=== PATIENT | male | born 1950 | race Caucasian/White ===

== ENCOUNTER 2020-12-27 17:15 | Emergency (ER) | payer MEDICARE, OTHER ==
[2020-12-27] MEDS ORDERED: Diphtheria,Pertussis(Acell),Tetanus Vaccine 0.5 ML Syringe IM ONE (17:34)
--- NOTE | 2020-12-27 17:41 | EDM.PDOC ---
ED HPI GENERAL MEDICAL PROBLEM - General Chief Complaint: Laceration Stated Complaint: LEFT CHIN LACERATION Time Seen by Provider: 12/27/20 17:30 Source of Information: Reports: Patient History Limitations: Reports: No Limitations - History of Present Illness INITIAL COMMENTS - FREE TEXT/NARRATIVE: 70 year-old male presents to the emergency room with a chainsaw laceration over his left myers. Patient states that he was cutting down lilac bushes in the saw kicked back striking his lower leg. He reports the wound is very superficial and only mild bleeding. No other complaints are voiced. He was able to drive himself in to the emergency room. He has no numbness or tingling complaints in the leg. Was wearing thick and heavy jeans when using the chainsaw. Onset: Today Onset Date: 12/27/20 Onset Time: 16:00 Duration: Minutes: Location: Reports: Lower Extremity, Left Quality: Reports: Ache Severity: Mild Improves with: Reports: None Worsens with: Reports: None Context: Reports: Trauma Associated Symptoms: Reports: No Other Symptoms ED ROS GENERAL - Review of Systems Review Of Systems: Comprehensive ROS is negative, except as noted in HPI. ED EXAM, SKIN/RASH Exam: See Below Exam Limited By: No Limitations General Appearance: Alert, WD/WN, No Apparent Distress Throat/Mouth: Normal Voice, No Airway Compromise Head: Atraumatic Neck: Normal Inspection Respiratory/Chest: No Respiratory Distress Extremities: Normal Inspection, Other (Superficial laceration over the left myers. Dog ear type laceration with irregular borders. No muscle, tendon, bone exposure) Neurological: Alert, Oriented, No Motor/Sensory Deficits Psychiatric: Normal Affect, Normal Mood Skin: Wound/Incision (Left myers, superficial laceration with irregular borders and dog ear type.) Course - Orders/Labs/Meds Orders: Active Orders 24 hr Category Date Time Status Vaccines to be Administered [RC] PER UNIT ROUTINE Care 12/27/20 17:35 Active Meds: Medications Discontinued Medications Generic Name Dose Route Start Last Admin Trade Name Freq PRN Reason Stop Dose Admin Diphtheria/Tetanus/Acell Pertussis 0.5 ml 12/27/20 17:34 Diphtheria,Pertussis(Acell),Tetanus Vaccine 0.5 Ml Syringe IM 12/27/20 17:35 .ONCE ONE - Re-Assessments/Exams Free Text/Narrative Re-Assessment/Exam: 12/27/20 17:40 The wound was inspected. It was cleaned with peroxide. Wound was superficial. About 2-1/2 cm with irregular border and dog ear type laceration. Triple antibiotic, nonadhesive Telfa and Coban was placed over the wound. No sutures were needed. Was instructed on daily dressing changes and observation. Departure - Departure Time of Disposition: 17:41 Disposition: Home, Self-Care 01 Condition: Good Clinical Impression: Laceration of left lower extremity Qualifiers: Encounter type: initial encounter Qualified Code(s): S81.812A - Laceration without foreign body, left lower leg, initial encounter - Discharge Information Instructions: Skin Tear, [id number], Nonsutured Laceration Care Referrals: PCP,None [Primary Care Provider] - Forms: ED Department Discharge Additional Instructions: 1. Dressing daily change. Clean wound with peroxide. Apply triple antibiotic and cover with nonadhesive Telfa and Coban. Keep the wound clean and dry. 2. If wound becomes red, drainage, purulence, you will need to be seen by your primary care for possible infection. 3. Tetanus was updated today. - My Orders Last 24 Hours: My Active Orders 12/27/20 17:35 Vaccines to be Administered [RC] PER UNIT ROUTINE - Assessment/Plan Last 24 Hours: My Active Orders 12/27/20 17:35 Vaccines to be Administered [RC] PER UNIT ROUTINE Assessment:: Left lower leg superficial laceration Plan: 1. Dressing daily change. Clean wound with peroxide. Apply triple antibiotic and cover with nonadhesive Telfa and Coban. Keep the wound clean and dry. 2. If wound becomes red, drainage, purulence, you will need to be seen by your primary care for possible infection. 3. Tetanus was updated today.
== END 2020-12-27 17:44 | disposition home or self-care (01) ==
LOC: KA.ED 17:15
DX: S81.812A Laceration without foreign body, left lower leg, initial encounter (principal); Z23 Encounter for immunization; W27.0XXA Contact with workbench tool, initial encounter
CPT/HCPCS: 90471; 90715; 99282; 99283

== ENCOUNTER 2021-03-06 16:21 | Emergency (ER) | payer MEDICARE, OTHER ==
[2021-03-06] MEDS ORDERED: Aspirin 81 MG Tab.Chew ONE (16:34)
[2021-03-06] MEDS ORDERED: Aspirin 81 MG Tab.Chew PO ONE (16:35)
--- NOTE | 2021-03-06 17:20 | EDM.PDOC ---
ED HPI GENERAL MEDICAL PROBLEM - General Chief Complaint: Chest Pain Stated Complaint: CHEST PAIN Time Seen by Provider: 03/06/21 16:45 Source of Information: Reports: Patient History Limitations: Reports: No Limitations - History of Present Illness INITIAL COMMENTS - FREE TEXT/NARRATIVE: 70-year-old male presents emergency room reports over the last 48 hours he has had 3 separate episodes of he describes chest discomfort across his chest and radiating down both of his arms with tingling in his arms. First episode occurred 2 nights ago while laying in bed. The symptoms resolved within 30 to 45 minutes each of the last 2 times. He felt a little clammy last night and the night before. He did not take anything for this. He denied any weakness in his arms. He denied any nausea or vomiting. He denied any significant jaw pain abdominal pain or back pain. Each time the symptoms are rated across the shoulders going down the arms. He stated that he had this symptom occur once again this afternoon at about 330 this afternoon. He thought he should get this checked out. The symptoms have resolved prior to his arrival. He does not have a primary care. He is not on any medications for high blood pressure cholesterol. Family history is significant for his father had congestive heart failure and hypertension. His father is in his 80s. He denied any chest pain or dyspnea on exertion. He denies any swelling in his legs. He also mentions today that he has had a toothache now going on for several weeks and feels that he may have a infection in 1 if his lower left jaw molars. States that he needs to get into the dentist. He is inquiring about a possible antibiotic for his tooth ache. Onset: Today, Other Onset Date: 03/04/21 Onset Time: 14:30 Duration: Minutes: (30-45), Recurring, Resolved Prior to Arrival Location: Reports: Chest, Upper Extremity, Left, Upper Extremity, Right Quality: Reports: Ache Severity: Mild Improves with: Reports: None Worsens with: Reports: None Associated Symptoms: Reports: Chest Pain, Diaphoresis. Denies: Headaches, Nausea/Vomiting, Shortness of Breath, Syncope 0 Pain Score (Numeric/FACES): 0 - Related Data Allergies Allergy/AdvReac Type Severity Reaction Status Date / Time No Known Drug Allergies Allergy Cannot Verified 03/06/21 16:39 Remember Home Meds: Home Meds . [No Known Home Meds] 12/27/20 [History] Past Medical History - Past Health History Medical/Surgical History: Denies Medical/Surgical History HEENT History: Reports: Allergic Rhinitis - Infectious Disease History Infectious Disease History: Reports: None Social & Family History - Tobacco Use Tobacco Use Status *Q: Never Tobacco User - Caffeine Use Caffeine Use: Reports: Coffee - Alcohol Use Days Per Week of Alcohol Use: 1 Number of Drinks Per Day: 1 Total Drinks Per Week: 1 - Recreational Drug Use Recreational Drug Use: No ED ROS GENERAL - Review of Systems Review Of Systems: See Below Constitutional: Reports: No Symptoms HEENT: Reports: Glasses Respiratory: Reports: No Symptoms Cardiovascular: Reports: Chest Pain, Palpitations (skips abeat). Denies: Dyspnea on Exertion, Lightheadedness, Orthopnea Endocrine: Reports: No Symptoms GI/Abdominal: Denies: Abdominal Pain, Nausea, Vomiting : Reports: No Symptoms Musculoskeletal: Reports: Shoulder Pain (bilateralshoulder and down arms) Skin: Reports: No Symptoms Neurological: Reports: No Symptoms Psychiatric: Reports: No Symptoms Hematologic/Lymphatic: Reports: No Symptoms Immunologic: Reports: No Symptoms ED EXAM, GENERAL - Physical Exam Exam: See Below Exam Limited By: No Limitations General Appearance: Alert, WD/WN, No Apparent Distress Eye Exam: Bilateral Eye: EOMI Ears: Hearing Grossly Normal Nose: Normal Inspection Throat/Mouth: Normal Inspection, Normal Oropharynx, Normal Voice, Other (prior tooth filling with c/o dental pain worsing over weeks. left bottom jaw) Head: Atraumatic Neck: Normal Inspection, Supple, Non-Tender, Full Range of Motion. No: Carotid Bruit, Lymphadenopathy (L), Lymphadenopathy (R) Respiratory/Chest: No Respiratory Distress, Lungs Clear, Normal Breath Sounds, No Accessory Muscle Use, Chest Non-Tender Cardiovascular: Normal Peripheral Pulses, Regular Rate, Rhythm, No Murmur Peripheral Pulses: 2+: Carotid (L), Carotid (R), Radial (L), Radial (R) GI/Abdominal: Normal Bowel Sounds, Soft, Non-Tender, No Abnormal Bruit Back Exam: Normal Inspection, Full Range of Motion Extremities: Normal Inspection, Normal Range of Motion, Non-Tender, No Pedal Edema, Normal Capillary Refill Neurological: Alert, Oriented, CN II-XII Intact, Normal Cognition, Normal Gait, Normal Reflexes, No Motor/Sensory Deficits Psychiatric: Normal Affect, Normal Mood Skin Exam: Warm, Dry, Intact, Normal Color, No Rash. No: Diaphoretic Lymphatic: No Adenopathy #1 Interpretation EKG Date: 03/06/21 Rhythm: Other (Normal sinus rhythm with sinus arrhythmia0) [place]: RAD-Right [place] Deviation P-Wave: Present QRS: Normal ST-T: Other (nonspecific ST and T wave abnormality) QT: Normal Comparison: NA - No Prior EKG EKG Interpretation Comments: Normal sinus rhythm with sinus arrhythmia Right axis deviation Nonspecific ST and T wave abnormality Abnormal ECG Course - Vital Signs Last Recorded V/S: Last Vital Signs Temp 97.9 F 03/06/21 16:31 Pulse 61 03/06/21 18:00 Resp 20 03/06/21 18:00 BP 128/71 03/06/21 18:00 Pulse Ox 95 03/06/21 18:00 - Orders/Labs/Meds Orders: Active Orders 24 hr Category Date Time Status EKG Documentation Completion [RC] ASDIRECTED Care 03/06/21 16:37 Active EKG 12 Lead [EK] Stat Ther 03/06/21 16:37 Ordered Labs: Laboratory Tests 03/06/21 03/06/21 Range/Units 17:00 17:00 WBC 6.79 (5.00-10.00) 10^3/uL RBC 5.49 (4.50-6.00) 10^6/uL Hgb 15.4 (13.0-17.0) g/dL Hct 46.8 (40.0-52.0) % MCV 85.2 (82.0-92.0) fL MCH 28.1 (27.0-31.0) pg MCHC 32.9 (32.0-36.0) g/dL RDW 13.2 (11.5-14.5) % Plt Count 178 (150-400) 10^3/uL MPV 10.2 (7.4-10.4) fL Immature Gran % (Auto) 0.1 (0.0-5.0) % Neut % (Auto) 64.3 (50.0-70.0) % Lymph % (Auto) 26.8 (20.0-40.0) % [place]oval % (Auto) 7.2 (2.0-8.0) % Eos % (Auto) 1.3 (1.0-3.0) % Baso % (Auto) 0.3 (0.0-1.0) % Neut # (Auto) 4.36 (2.50-7.00) 10^3/uL Lymph # (Auto) 1.82 (1.00-4.00) 10^3/uL [place] # (Auto) 0.49 (0.10-0.80) 10^3/uL Eos # (Auto) 0.09 L (0.10-0.30) 10^3/uL Baso # (Auto) 0.02 (0.00-0.10) 10^3/uL Immature Gran # (Auto) 0.01 (0.00-0.50) 10^3/uL Troponin I High Sens 69.800 (0-76.000) pg/mL Meds: Medications Discontinued Medications Generic Name Dose Route Start Last Admin Trade Name Freq PRN Reason Stop Dose Admin Aspirin 324 mg 03/06/21 16:35 03/06/21 16:36 Aspirin 81 Mg Tab.Chew PO 03/06/21 16:36 324 mg ONETIME ONE Administration Aspirin Confirm 03/06/21 16:34 03/06/21 16:38 Aspirin 81 Mg Tab.Chew Administered 03/06/21 16:35 Not Given Dose 324 mg .ROUTE .STK-MED ONE - Re-Assessments/Exams Free Text/Narrative Re-Assessment/Exam: 03/06/21 17:23 No current symptoms, resolved prior to the patient arriving to the emergency room Departure - Departure Time of Disposition: 18:11 Disposition: Home, Self-Care 01 Condition: Good Clinical Impression: Atypical chest pain Instructions: Nonspecific Chest Pain, Adult, [id number], Angina, [id number] Referrals: Tania Marino MD [Physician] - 3 Days (H&P, stress test.) Forms: ED Department Discharge Additional Instructions: 1. 81 mg baby aspirin daily. 2. Acute onset of chest pain that is not relieved within 2 minutes should be reevaluated and seen in the emergency room immediately.. 3. You experience chest pain associated with shoulder, back, jaw, upper abdominal, arm pain, or experienced symptoms such as nausea vomiting feeling clammy or profuse sweating he should be seen back in the emergency room. 4. follow-up with Dr. Tania Varela in 1 week. Would recommend a stress test. 5. 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 6. Follow-up with the dentist for your tooth ache. 7. Avoid excessive exertion or working in the heat until follow-up appoint with primary care. Sepsis Event Note (ED) - Evaluation Sepsis Screening Result: No Definite Risk - Focused Exam Vital Signs: Vital Signs Temp Pulse Resp BP Pulse Ox 03/06/21 18:00 61 20 128/71 95 03/06/21 17:30 59 L 18 137/75 97 03/06/21 17:00 84 13 142/92 H 97 03/06/21 16:31 97.9 F 74 20 162/81 H 94 L 03/06/21 16:30 73 17 149/82 H 96 - My Orders Last 24 Hours: My Active Orders 03/06/21 16:37 EKG Documentation Completion [RC] ASDIRECTED EKG 12 Lead [EK] Stat - Assessment/Plan Last 24 Hours: My Active Orders 03/06/21 16:37 EKG Documentation Completion [RC] ASDIRECTED EKG 12 Lead [EK] Stat Assessment:: 1. Typical chest pain 2. Toothache Plan: 1. 81 mg baby aspirin daily. 2. Acute onset of chest pain that is not relieved within 2 minutes should be reevaluated and seen in the emergency room immediately.. 3. You experience chest pain associated with shoulder, back, jaw, upper abdominal, arm pain, or experienced symptoms such as nausea vomiting feeling clammy or profuse sweating he should be seen back in the emergency room. 4. follow-up with Dr. Tania Varela in 1 week. Would recommend a stress test. 5. 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 6. Follow-up with the dentist for your tooth ache. 7. Avoid excessive exertion or working in the heat until follow-up appoint with primary care.
== END 2021-03-06 18:20 | disposition home or self-care (01) ==
LOC: KA.ED 16:21
DX: R07.89 Other chest pain (principal)
CPT/HCPCS: 36415; 84484; 85025; 93005; 99284; 99285-25; A9270-GY